=== PATIENT | female | born 1980 | race Caucasian/White ===

== ENCOUNTER 2018-02-20 13:34 | Emergency (ER) | payer OTHER ==
[~2018-02-20] VITALS: Ht 167.6 cm; Wt 90.7 kg
[~2018-02-20 13:34] MED LIST: ACETAMINOPHEN PO; APAP500 PO; AUGMENTIN 875875 MG PO; BACTRIM DS TAB1 EACH PO; BENADRYL25 MG PO; FLAGYL500 MG PO; GEODON20 MG; IBUPROFEN 600600 M1 PO; IBUPROFEN 800800 M1 PO; LATUDA20 MG PO; NOHOMEMEDICATIONS; NORFLEX100 MG PO; ONDANSETRON HCL4 M2 PO; PEPCID40 MG PO; PRENATAL PO; PYRIDIUM200 MG PO; VALIUM5 MG PO
[2018-02-20] MEDS ORDERED: LATUDA40 MG PO (13:41)
[2018-02-20] MEDS ORDERED: LOXAPINE50 MG PO (13:41)
[2018-02-20 14:00] LABS: ABSOLUTE NEUTROPHILS 6.9 thou/uL (1.4-8.2); BASOPHILS 0.6 % (0.0-2.0); EOSINOPHILS 2.5 % (0.0-3.0); HEMATOCRIT 42.6 % (37.0-47.0); HEMOGLOBIN 14.4 gm/dL (12.0-15.0); LYMPHOCYTES 28.1 % (24.0-44.0); MCH 28.7 pg (26.0-34.0); MCHC 33.8 g/dL (28.0-37.0); MONOCYTES 6.9 % (1.0-8.0); PLATELET COUNT 322 thou/uL (150-400); POLYS 61.9 % (36.0-66.0); RBC 5.01 mil/uL (4.20-5.00); RDW 13.1 % (10.5-14.5); WBC 11.2 thou/uL (4.0-11.0)
[2018-02-20 14:05] LABS: ANION GAP 7 mmol/L (7-16); BUN 14 mg/dL (7-18); CALCIUM 9.5 mg/dL (8.5-10.1); CHLORIDE 103 mmol/L (98-107); CO2 29 mmol/L (21-32); CREATININE 0.8 mg/dL (0.6-1.0); GLUCOSE 113 mg/dL (74-106); POTASSIUM 4.2 mmol/L (3.5-5.1); SODIUM 139 mmol/L (136-145)
[2018-02-20 14:11] LABS: ALBUMIN 3.6 g/dL (3.4-5.0); DIRECT BILIRUBIN < 0.1 mg/dL (<0.1-0.3); LIPASE 75 U/L (73-393); SGOT 13 U/L (15-37); SGPT 32 U/L (30-65); TOTAL BILIRUBIN 0.2 mg/dL (<0.1-1.0); TOTAL PROTEIN 7.7 g/dL (6.4-8.2)
[2018-02-20 14:43] LABS: URINE BILIRUBIN NEGATIVE (Negative); URINE BLOOD NEGATIVE (Negative); URINE CLARITY CLEAR; URINE COLOR YELLOW; URINE GLUCOSE-RANDOM* NEGATIVE (Negative); URINE KETONES NEGATIVE (Negative); URINE LEUKOCYTES 1+ (Negative); URINE NITRITE NEGATIVE (Negative); URINE PROTEIN (DIPSTICK) NEGATIVE (Negative); URINE UROBILINOGEN 0.2 E.U./dl (0.2-1.0)
[2018-02-20 14:52] LABS: BACTERIA None Seen /HPF (None Seen); CASTS None Seen /LPF (None Seen); CRYSTALS None Seen /LPF (None Seen); MUCUS 4-6 Moderate strn/LPF (None Seen); SQUAMOUS 4-10 Moderate /LPF (0-3); URINE RBC 0-2 Rare /HPF (0-2); URINE WBC 0-5 Rare /HPF (0-5)
[2018-02-20] MEDS ORDERED: ATIVAN1 MG PO (14:56)
[2018-02-20 15:22] VITALS: BP 135/79
== END 2018-02-20 15:20 | disposition home or self-care (01) ==
LOC: ER 13:34
PROVIDERS: Emergency Medicine
DX: F41.9 Anxiety disorder, unspecified (principal); R25.2 Cramp and spasm; F32.9 Major depressive disorder, single episode, unspecified; F20.9 Schizophrenia, unspecified; G89.29 Other chronic pain; M54.9 Dorsalgia, unspecified; Z88.5 Allergy status to narcotic agent; Z88.8 Allergy status to other drugs, medicaments and biological substances; Z87.891 Personal history of nicotine dependence

== ENCOUNTER 2019-11-29 08:41 | Emergency (ER) | payer OTHER ==
[~2019-11-29] VITALS: Ht 165.1 cm; Wt 113.4 kg
[~2019-11-29 08:41] MED LIST changes: +ATIVAN1 MG PO; +LATUDA40 MG PO; +LOXAPINE50 MG PO
[2019-11-29] MEDS ORDERED: ABILIFY20 MG PO (08:52)
[2019-11-29 09:12] LABS: URINE BILIRUBIN NEGATIVE (Negative); URINE BLOOD NEGATIVE (Negative); URINE CLARITY CLEAR; URINE COLOR YELLOW; URINE GLUCOSE-RANDOM* NEGATIVE (Negative); URINE KETONES NEGATIVE (Negative); URINE LEUKOCYTES-REFLEX NEGATIVE (Negative); URINE NITRITE-REFLEX NEGATIVE (Negative); URINE PROTEIN (DIPSTICK) NEGATIVE (Negative); URINE SPECIFIC GRAVITY >= 1.030 (1.005-1.035); URINE UROBILINOGEN 0.2 E.U./dl (0.2-1.0)
[2019-11-29 11:04] VITALS: BP 137/75
== END 2019-11-29 11:06 | disposition home or self-care (01) ==
LOC: ER 08:41
PROVIDERS: Emergency Medicine
DX: R10.2 Pelvic and perineal pain (principal); M54.9 Dorsalgia, unspecified; G89.29 Other chronic pain; F20.9 Schizophrenia, unspecified; F32.9 Major depressive disorder, single episode, unspecified; Z87.891 Personal history of nicotine dependence; Z88.6 Allergy status to analgesic agent; Z88.8 Allergy status to other drugs, medicaments and biological substances

== ENCOUNTER 2021-10-22 13:24 | Emergency (ER) | payer OTHER ==
[~2021-10-22 13:24] MED LIST changes: +ABILIFY20 MG PO
== END 2021-10-22 14:07 | disposition left against medical advice (07) ==
LOC: ER 13:24
DX: J02.9 Acute pharyngitis, unspecified (principal); Z53.21 Procedure and treatment not carried out due to patient leaving prior to being seen by health care provider; Z88.5 Allergy status to narcotic agent; Z88.6 Allergy status to analgesic agent; Z88.8 Allergy status to other drugs, medicaments and biological substances